=== PATIENT | female | born 1985 | race Caucasian/White ===

== ENCOUNTER → 2016-11-05 | Outpatient (CLI) | payer OTHER ==
[~2016-11-05] MED LIST: MTR600X PO; OXYC-57 PO; PRENTAB26 PO
[2016-11-05 18:11] LABS: PATIENT HEIGHT 167.6 cm
[2016-11-05 18:58] LABS: HEMATOCRIT 32.9 % (37-47); MEAN CELL VOLUME 89.6 fL (80-100); MEAN CORPUSCULAR HEMOGLOBIN 30.8 pg (25-34); MEAN CORPUSCULAR HGB CONC 34.3 g/dl (32-36); MEAN PLATELET VOLUME 11.8 fL (7.4-10.4); PLATELET COUNT 178 K/uL (130-400); RED BLOOD COUNT 3.67 M/uL (4.2-5.4); WHITE BLOOD COUNT 13.46 K/uL (4.8-10.8)
[2016-11-05 19:18] LABS: CREATININE 0.56 mg/dl (0.60-1.20)
[2016-11-05 19:23] LABS: ALKALINE PHOSPHATASE 127 U/L (45-117); ALT/SGPT 18 U/L (12-78); AST/SGOT 12 U/L (15-37)
[2016-11-05 22:41] LABS: URINE TOTAL PROTEIN 29.6 mg/dl (0-11.9)
[2016-11-05 23:08] LABS: CREATININE 0.56 mg/dl (0.6-1.2); URINE TOTAL PROTEIN CALC 340.4 mg/24 hr (0-149.1)
== END | disposition home or self-care (01) ==
LOC: C.LAB 18:00
PROVIDERS: ATTEND Obstetrics & Gynecology
DX: O16.9 Unspecified maternal hypertension, unspecified trimester (principal)

== ENCOUNTER → 2016-11-07 | Outpatient (CLI) | payer OTHER | END | disposition home or self-care (01) | LOC: C.LABSPEC 11:56 | PROVIDERS: ATTEND Obstetrics & Gynecology | DX: Z34.03 Encounter for supervision of normal first pregnancy, third trimester (principal) ==

== ENCOUNTER → 2016-11-14 | Outpatient (CLI) | payer OTHER ==
[2016-11-14 17:38] LABS: HEMATOCRIT 32.9 % (37-47); MEAN CELL VOLUME 91.1 fL (80-100); MEAN PLATELET VOLUME 12.8 fL (7.4-10.4); PLATELET COUNT 168 K/uL (130-400); RED BLOOD COUNT 3.61 M/uL (4.2-5.4)
[2016-11-14 17:51] LABS: ALT/SGPT 17 U/L (12-78); AST/SGOT 14 U/L (15-37); BLOOD UREA NITROGEN 10 mg/dl (7-18); BUN/CREATININE RATIO 15.6 (10-20); CARBON DIOXIDE 25 mmol/L (21-32); CHLORIDE 104 mmol/L (98-107); CREATININE 0.64 mg/dl (0.60-1.20); GLUCOSE 77 mg/dl (70-99); POTASSIUM 4.3 mmol/L (3.5-5.1); SODIUM 139 mmol/L (136-145)
[2016-11-14 17:54] LABS: ALB/GLOB RATIO 0.7 (0.9-2); ALKALINE PHOSPHATASE 134 U/L (45-117)
== END | disposition home or self-care (01) ==
LOC: C.LAB1850 16:42
PROVIDERS: ATTEND Obstetrics & Gynecology
DX: O14.03 Mild to moderate pre-eclampsia, third trimester (principal)

== ENCOUNTER → 2016-11-20 | Outpatient (CLI) | payer OTHER ==
[2016-11-20 14:29] LABS: BASO % 0.2 %; BASO ABS # 0.02 K/uL (0-0.2); COMPLETE YES; EOS % 0.4 %; HEMATOCRIT 31.5 % (37-47); IG% 0.5 %; LYMPH % 19.6 %; LYMPH ABS # 2.22 K/uL (1.2-3.4); MEAN CELL VOLUME 90.8 fL (80-100); MEAN CORPUSCULAR HEMOGLOBIN 30.5 pg (25-34); MEAN CORPUSCULAR HGB CONC 33.7 g/dl (32-36); MONO % 4.7 %; NEUT % 74.6 %; PLATELET COUNT 156 K/uL (130-400); RED BLOOD COUNT 3.47 M/uL (4.2-5.4); WHITE BLOOD COUNT 11.35 K/uL (4.8-10.8)
[2016-11-20 14:39] LABS: ALT/SGPT 15 U/L (12-78); AST/SGOT 10 U/L (15-37); BLOOD UREA NITROGEN 9 mg/dl (7-18); CALCIUM 8.6 mg/dl (8.5-10.1); CARBON DIOXIDE 23 mmol/L (21-32); CHLORIDE 107 mmol/L (98-107); CREATININE 0.69 mg/dl (0.60-1.20); GLUCOSE 113 mg/dl (70-99); POTASSIUM 3.8 mmol/L (3.5-5.1); SODIUM 140 mmol/L (136-145)
[2016-11-20 14:48] LABS: ALB/GLOB RATIO 0.7 (0.9-2); ALKALINE PHOSPHATASE 127 U/L (45-117)
== END | disposition home or self-care (01) ==
LOC: C.LAB1850 13:07
PROVIDERS: ATTEND Obstetrics & Gynecology
DX: O14.03 Mild to moderate pre-eclampsia, third trimester (principal)

== ENCOUNTER 2016-11-26 17:53 | Inpatient (IN) | payer OTHER ==
[~2016-11-26] VITALS: Ht 165.1 cm; Wt 77.1 kg
[2016-11-26] MEDS ORDERED: PRENTAB26 PO (19:27)
[2016-11-26 19:36] VITALS: Ht 165.1 cm; Wt 77.1 kg
[2016-11-26] MEDS ORDERED: LACTATED RINGER'S 1000ML 1,000 ML IV PRN (20:21)
[2016-11-26 20:44] LABS: HEMATOCRIT 30.8 % (37-47); MEAN CELL VOLUME 90.6 fL (80-100); MEAN CORPUSCULAR HEMOGLOBIN 30.9 pg (25-34); MEAN CORPUSCULAR HGB CONC 34.1 g/dl (32-36); PLATELET COUNT 146 K/uL (130-400); WHITE BLOOD COUNT 12.44 K/uL (4.8-10.8)
[2016-11-26] MEDS ORDERED: IV FLUIDS COMPLETED PRN (20:45)
[2016-11-26] MEDS ORDERED: LACTATED RINGER'S 1000ML 500 ML IV PRN (21:22)
[2016-11-26] MEDS ORDERED: OXYTOCIN 30 UNITS/500ML NSS IV PRN (21:30)
[2016-11-26] MEDS: LACTATED RINGER'S 1000ML 1,000 ML IV SCH (22:51)
[2016-11-27] MEDS ORDERED: BUPIVACAINE 0.25% 30 ML VIAL ONE (02:31)
[2016-11-27] MEDS ORDERED: EpHEDrine SULFATE INJ 50 MG/ML AMP ONE (02:31)
[2016-11-27] MEDS ORDERED: FENTANYL 2MCG/ML ROPIV 1.25MG/ML 100ML BAG EPI ONE (02:32)
[2016-11-27] MEDS ORDERED: FENTANYL CITRATE INJ 50 MCG/1 ML 2 ML VIAL ONE (02:32)
[2016-11-27] MEDS: LACTATED RINGER'S 1000ML 1,000 ML IV SCH ×3 (03:39→13:47)
[2016-11-27] MEDS ORDERED: NALOXONE HCL INJ 1 MG in SODIUM CHLORIDE 0.9% 1000ML 1,000 ML IV PRN (03:44)
[2016-11-27] MEDS ORDERED: LACTATED RINGER'S 1000ML 500 ML IV PRN (03:44)
[2016-11-27] MEDS ORDERED: NALOXONE HCL INJ 0.4 MG/1 ML VIAL/CARP IV PRN (03:45)
[2016-11-27] MEDS ORDERED: DiphenhydrAMINE HCL 50 MG/ML VIAL IV PRN (03:45)
[2016-11-27] MEDS ORDERED: EpHEDrine SULFATE INJ 50 MG/ML AMP IV PRN ×2 (03:45→21:15)
[2016-11-27] MEDS ORDERED: CALCIUM CARBONATE 500 MG CHEWABLE PO PRN (04:00)
[2016-11-27] MEDS: FENTANYL 2MCG/ML ROPIV 1.25MG/ML 100ML BAG EPI PRN ×5 (07:07→18:56)
[2016-11-27] MEDS ORDERED: LACTATED RINGER'S 1000ML 1,000 ML IV ONE (19:29)
[2016-11-27] MEDS ORDERED: CITRIC ACID/SODIUM CITRATE 15 ML UDC PO ONE (19:30)
--- NOTE | 2016-11-27 19:43 | History & Physical Bridge Note ---
H&P Re-Evaluation Bridge Note: I have examined the patient, reviewed the History & Physical and in the interval since the performance of the History & Physical I have noted the following changes of clinical significance: No changes noted
[2016-11-27] MEDS ORDERED: CEFAZOLIN IV 2,000 MG in DEXTROSE 5% 50ML 50 ML IV ONE (19:45)
[2016-11-27] MEDS ORDERED: LIDOCAINE/EPINEPHRINE 2% 1:200,000 20 ML SDV ONE (19:53)
[2016-11-27] MEDS ORDERED: OXYTOCIN INJ 10 UNITS/ML VIAL ONE (19:53)
[2016-11-27] MEDS ORDERED: MoRPHine SULFATE PF 1 MG/ML 10 ML AMP/VIAL ONE (20:17)
--- NOTE | 2016-11-27 21:05 | Anesthesia Procedure Note ---
Anesthesia Epidural Removal Nt Date & Time Nov 27, 2016 at 21:05 Vital Signs Pain Intensity: 0.0 Notes Mental Status: alert / awake / arousable, participated in evaluation Nausea / Vomiting: adequately controlled Pain: adequately controlled Airway Patency, RR, SpO2: stable & adequate BP & HR: stable & adequate Hydration State: stable & adequate Neuraxial Anesthesia: was administered Anesthetic Complications: no major complications apparent, pt satisfied with anesthetic care Epidural: removed without complications, with tip intact
[2016-11-27] MEDS ORDERED: OXYTOCIN INJ 30 UNITS in LACTATED RINGER'S 1000ML 1,000 ML IV SCH (21:06)
[2016-11-27] MEDS ORDERED: LACTATED RINGER'S 1000ML 1,000 ML IV SCH (21:06)
--- NOTE | 2016-11-27 21:06 | [facility] Post Operative Brief Note ---
Immediate Operative Summary Operative Date Nov 27, 2016. Pre-Operative Diagnosis Primary Caesarean Section for failure to descend and suspected cephalopelvic disproportion Post-Operative Diagnosis Primary Caesarean Section for failure to descend and suspected cephalopelvic disproportion Procedure(s) Performed Primary Low Transverse Caesarean Section for delivery of a live female child at [address] Khoury Wedger And Gluer Surgeon(s) Laura Currie Estimated Blood Loss 500cc Findings Viable female , Apgars 8/9. Weight pending. Normal appearing uterus, tubes, ovaries. Specimens Placenta (Hold) Arterial gases Venous gases Drains pandya to gravity. Anesthesia re-dose epidural Complication(s) None Disposition L&D
[2016-11-27] MEDS ORDERED: MEPERIDINE HCL 25 MG/ML CARP IV PRN (21:15)
[2016-11-27] MEDS ORDERED: BENZOCAINE 20% AER SPR 82.5 GM CAN EXT PRN (21:15)
[2016-11-27] MEDS ORDERED: ONDANSETRON INJ 2 MG/ML 2 ML VIAL IV PRN (21:15)
[2016-11-27] MEDS ORDERED: MAGNESIUM HYDROXIDE SUSP 30 ML UDC PO PRN (21:15)
[2016-11-27] MEDS ORDERED: DC INTRASPINAL MORPHINE PRN (21:15)
[2016-11-27] MEDS ORDERED: ATROPINE SULFATE 0.1 MG/ML 5ML SYR IV PRN (21:15)
[2016-11-27] MEDS ORDERED: CONTINUE MEDICATION ONE (21:15)
[2016-11-27] MEDS ORDERED: LANOLIN OINT EXT PRN ×2 (21:15)
[2016-11-27] MEDS ORDERED: METOCLOPRAMIDE HCL INJ 5 MG/ML 2 ML VIAL IV PRN (21:15)
[2016-11-27] MEDS ORDERED: NO NARCOTICS OR SEDATIVES SCH (21:15)
[2016-11-27] MEDS ORDERED: FENTANYL CITRATE INJ 50 MCG/1 ML 2 ML VIAL IV PRN (21:15)
[2016-11-27] MEDS ORDERED: MoRPHine SULFATE PF 1 MG/ML 10 ML AMP/VIAL EPI PRN (21:15)
[2016-11-27] MEDS ORDERED: PROMETHAZINE HCL INJ 25 MG in SODIUM CHLORIDE 0.9% 50ML 50 ML IV PRN (21:15)
[2016-11-27] MEDS ORDERED: KETOROLAC TROMETHAMINE 30 MG/ML VIAL IV. PRN ×2 (21:15)
[2016-11-27] MEDS ORDERED: HYDROCORTISONE ACETATE 25 MG SUPP PR PRN (21:15)
[2016-11-27] MEDS ORDERED: SUPERCREAM 0.870 % 15GM JAR EXT PRN (21:15)
[2016-11-27] MEDS ORDERED: MEPERIDINE HCL 25 MG/ML CARP ONE (21:18)
[2016-11-27 23:15] VITALS: BP 148/90; TEMP 38; O2SAT 94
[2016-11-28] VITALS (16 sets, daily range): BP systolic 136–176; BP diastolic 83–97; PULSE 86–98; TEMP 36.8–37.4; O2SAT 94–98
[2016-11-28 00:56] LABS: HEMATOCRIT 30.3 % (37-47); MEAN CELL VOLUME 90.4 fL (80-100); MEAN CORPUSCULAR HEMOGLOBIN 30.7 pg (25-34); MEAN PLATELET VOLUME 13.2 fL (7.4-10.4); PLATELET COUNT 156 K/uL (130-400); RED BLOOD COUNT 3.35 M/uL (4.2-5.4); WHITE BLOOD COUNT 22.12 K/uL (4.8-10.8)
[2016-11-28 01:21] LABS: ALB/GLOB RATIO 0.6 (0.9-2); BUN/CREATININE RATIO 10.9 (10-20); CALCIUM 7.8 mg/dl (8.5-10.1); CREATININE 1.5 mg/dl (0.60-1.20); POTASSIUM 4.1 mmol/L (3.5-5.1)
[2016-11-28] MEDS ORDERED: MAGNESIUM SULFATE / WTR 1,000 ML IV ONE (02:03)
--- NOTE | 2016-11-28 02:13 | Progress Note ---
Progress Note Patient with urine output since section 100cc over 3 hours, barely adequate output. She has had low output all day. Preeclampsia labs showed creatinine 1.5, increased from 0.7. Platelets, liver enzymes wnl. Due to patient's diagnosis of preeclampsia and now worsening renal function, concern for worsening preeclampsia. Will start magnesium bolus 4g. Due to elevated creatinine, will not give maintenance infusion. Will draw magnesium level in 4 hours and re-bolus at that time if appropriate. Discussed with patient, she is agreeable to plan. Repeat labs at 0600.
[2016-11-28] MEDS ORDERED: MAGNESIUM SULFATE 4GM / WTR 100ML IV STA (02:18)
--- NOTE | 2016-11-28 04:44 | OPERATIVE REPORT ---
DATE OF OPERATION: 11/27/2016 PREOPERATIVE DIAGNOSES: 1. Term intrauterine . 2. Preclampsia without severe features. 3. Failure to descend. 4. Cephalopelvic disproportion. POSTOPERATIVE DIAGNOSIS: Same. PROCEDURE: Primary low transverse section. SURGEON: Dr. Khoury. CHALKER SOLES: Laura Currie. ESTIMATED BLOOD LOSS: 500 mL FINDINGS: Viable female , Apgars 8 and 9, weight pending. Normal appearing uterus, tubes and ovaries. SPECIMENS: Placenta, arterial and venous gases and cord blood. DRAINS: Perez to gravity. ANESTHESIA: Re-dose of epidural. COMPLICATIONS: None. DISPOSITION: Labor and delivery, stable and good. INDICATIONS FOR PROCEDURE: The patient is a 31-year-old G1, P0, at 37 weeks 0 days, who presented for induction of labor, secondary to preclampsia. She underwent induction, starting with a Perez balloon followed by a Pitocin. She received an epidural. She progressed to complete and pushed for greater than three hours with no movement of head beyond a +3 station. While patient was pushing, significant molding of the head was noted. I discussed options with the patient and given the significant molding and maternal exhaustion, she elected to proceed with section. Informed consent was obtained. All risks, benefits, alternatives were reviewed with the patient and she agreed to proceed with surgery. DESCRIPTION OF PROCEDURE: The patient was taken to the operating room where she was prepared and draped in the usual sterile fashion in the supine position with a leftward tilt. A re-dosing of epidural anesthesia was performed. She was given 2 grams of Ancef prior to the procedure. A timeout was called and procedure, the patient, medications and allergies were confirmed. The Pfannenstiel skin incision was made with the scalpel and carried down to the underlying layer of fascia. The incision was dissected with blunt dissection. The fascia was nicked at midline and this incision was extended bilaterally with both blunt and sharp dissection. The superior aspect of the fascial incision was elevated off the underlying rectus abdominis muscles with Jam clamps x2 and the underlying muscles were dissected sharply and bluntly in a similar fashion, the inferior aspect of the incision was dissected off the underlying rectus abdominis muscles. Muscles were at midline bluntly and the peritoneum was entered bluntly, digitally. The bladder blade was placed. A bladder flap was created using Metzenbaum scissors. The bladder was dissected gently off the lower uterine segment. The bladder blade was replaced. A scalpel was used to perform the low transverse hysterotomy incision. This incision was extended cephalad caudad manually. The was delivered from a cephalic presentation. The head delivered followed by the anterior and the posterior shoulder followed by the body. The cord was doubly clamped and cut. The was handed off to the awaiting pediatrics team. A spontaneous cry was heard. A cord segment for cord gases was cut. Cord blood was obtained. The placenta was delivered spontaneously intact with a 3-vessel cord. The uterus was exteriorized. The uterus was cleared of all clots and debris. The hysterotomy incision was reapproximated using 0 Vicryl in a running locked stitch. A second layer of the same suture was used to imbricate to the hysterotomy incision. The pelvis was irrigated. The uterus was returned to the abdomen. The gutters were cleared of all clots and debris. The hysterotomy incision was re-inspected and noted to be hemostatic. The fascia was reapproximated with 0 Vicryl in a running stitch. The subcutaneous tissue was reapproximated using 2-0 plain gut in a running stitch. The skin was reapproximated using 4-0 Vicryl in a running subcuticular fashion. The patient tolerated the procedure well. She and the baby were in stable and good condition at the conclusion of the case. I attest to the content of the Intraoperative Record and any orders documented therein. Any exceptions are noted below. JORDANA
[2016-11-28 06:20] LABS: BASO ABS # 0.01 K/uL (0-0.2); COMPLETE YES; HEMATOCRIT 28.5 % (37-47); IG% 0.4 %; LYMPH % 9.6 %; LYMPH ABS # 2.05 K/uL (1.2-3.4); MEAN CELL VOLUME 89.6 fL (80-100); MEAN CORPUSCULAR HEMOGLOBIN 30.8 pg (25-34); MEAN CORPUSCULAR HGB CONC 34.4 g/dl (32-36); MEAN PLATELET VOLUME 12.6 fL (7.4-10.4); MONO % 5.8 %; NEUT % 84.2 %; PLATELET COUNT 131 K/uL (130-400); RED BLOOD COUNT 3.18 M/uL (4.2-5.4)
[2016-11-28] MEDS: NALBUPHINE HCL INJ 10 MG/ML AMP IV PRN ×2 (06:20→06:30)
[2016-11-28 07:01] LABS: ALB/GLOB RATIO 0.7 (0.9-2); BUN/CREATININE RATIO 15.8 (10-20); CALCIUM 7.6 mg/dl (8.5-10.1); CREATININE 0.95 mg/dl (0.60-1.20); MAGNESIUM 2.5 mg/dl (1.8-2.4)
[2016-11-28] MEDS: DOCUSATE SODIUM 100 MG CAP PO SCH ×2 (08:00→19:35)
[2016-11-28] MEDS ORDERED: MAGNESIUM SULFATE 4GM / WTR 4 GM BAG IV ONE (08:15)
--- NOTE | 2016-11-28 08:28 | Progress Note ---
Subjective Nov 28, 2016. Subjective conversation w/ patient Ambulation: limited ambulation Voiding: pandya catheter in place Passing Gas: No Diet Tolerance: Clear Liquids Lochia: Small Feeding Type: Breast Feeding Pain: Controlled Review of Systems Constitutional: No problem reported Respiratory: No problem reported Cardiac: No problem reported Breast: No problem reported Abdomen: No problem reported Female : No problem reported Objective Vital Signs Date Time Temp Pulse Resp B/P Pulse Ox O2 Delivery O2 Flow Rate FiO2 11/28/16 02:00 36.8 98 18 176/97 97 Room Air 11/28/16 01:00 37.3 87 20 150/83 95 11/28/16 01:00 20 95 11/28/16 00:00 18 96 11/28/16 00:00 36.8 86 18 145/92 96 Room Air 11/28/16 00:00 36.8 86 18 145/92 96 Room Air 11/27/16 23:15 38.0 18 148/90 94 Room Air 11/27/16 23:15 18 94 11/27/16 23:15 94 Room Air 11/27/16 23:15 38.0 18 148/90 94 Room Air Physical Exam General Appearance: WELL-APPEARING, NO APPARENT DISTRESS Respiratory/Chest: normal breath sounds, no respiratory distress Cardiovascular: regular rate, rhythm Abdomen: non tender, soft Fundus: Firm Incision Description: Clean, Dry & Intact Extremities: + swelling Laboratory Results Last 24 Hours Test 11/28/16 00:44 11/28/16 06:00 White Blood Count 22.12 K/uL 21.30 K/uL Red Blood Count 3.35 M/uL 3.18 M/uL Hemoglobin 10.3 g/dL 9.8 g/dL Hematocrit 30.3 % 28.5 % Mean Corpuscular Volume 90.4 fL 89.6 fL Mean Corpuscular Hemoglobin 30.7 pg 30.8 pg Mean Corpuscular Hemoglobin Concent 34.0 g/dl 34.4 g/dl RDW Standard Deviation 43.0 fL 41.8 fL RDW Coefficient of Variation 13.1 % 12.9 % Platelet Count 156 K/uL 131 K/uL Mean Platelet Volume 13.2 fL 12.6 fL Sodium Level 139 mmol/L 136 mmol/L Potassium Level 4.1 mmol/L 4.0 mmol/L Chloride Level 104 mmol/L 103 mmol/L Carbon Dioxide Level 19 mmol/L 22 mmol/L Anion Gap 16.0 mmol/L 11.0 mmol/L Blood Urea Nitrogen 16 mg/dl 15 mg/dl Creatinine 1.50 mg/dl 0.95 mg/dl Est Creatinine Clear Calc Drug Dose 56.3 ml/min 88.9 ml/min Estimated GFR () 53.6 93.2 Estimated GFR (Non- 46.3 80.4 BUN/Creatinine Ratio 10.9 15.8 Random Glucose 139 mg/dl 85 mg/dl Uric Acid 5.0 mg/dl Calcium Level 7.8 mg/dl 7.6 mg/dl Total Bilirubin 0.6 mg/dl 0.7 mg/dl Aspartate Amino Transf (AST/SGOT) 28 U/L 29 U/L Alanine Aminotransferase (ALT/SGPT) 17 U/L 16 U/L Alkaline Phosphatase 116 U/L 99 U/L Total Protein 5.1 gm/dl 4.5 gm/dl Albumin 2.0 gm/dl 1.8 gm/dl Globulin 3.1 gm/dl 2.7 gm/dl Albumin/Globulin Ratio 0.6 0.7 Neutrophils (%) (Auto) 84.2 % Lymphocytes (%) (Auto) 9.6 % Monocytes (%) (Auto) 5.8 % Eosinophils (%) (Auto) 0.0 % Basophils (%) (Auto) 0.0 % Neutrophils # (Auto) 17.92 K/uL Lymphocytes # (Auto) 2.05 K/uL Monocytes # (Auto) 1.24 K/uL Eosinophils # (Auto) 0.00 K/uL Basophils # (Auto) 0.01 K/uL Immature Granulocyte % (Auto) 0.4 % Immature Granulocyte # (Auto) 0.08 K/uL Magnesium Level 2.5 mg/dl Assessment and Plan Post-Op Day#: 1 Continue Routine Care: POD#1 s/p for failure to descend after IOL for preeclampsia. Overnight, patient had minimally adequate urine output (30ml/hr, dark) and Creatinine increased to 1.5. Therefore, preeclampsia with severe features diagnosis was made and magnesium bolus given. No infusion due to elevated Cr and concern for mag toxicity if kidneys unable to metabolize the magnesium. Mg level this AM 2.5 and creatinine 0.95 - an additional 4g bolus of mag given this AM to continue treating preeclampsia. Will consider 24h of treatment with magnesium. Since Cr is improving, if she continues to tolerate mg with this second bolus with no s/s mag toxicity, consider initiating mag infusion. Patient is feeling well, no s/s mag toxicity. Denies headache, vision change, RUQ pain. LE edema continues. Creatinine has improved, platelets ok at 130's. Additional preeclampsia labs wnl.
[2016-11-28] MEDS: SIMETHICONE 80 MG CHEW PO SCH ×4 (09:00→19:33)
[2016-11-28] MEDS ORDERED: OXYCODONE/ACETAMINOPHEN 5-325 TAB PO PRN (14:30)
[2016-11-28] MEDS ORDERED: DiphenhydrAMINE HCL 50 MG/ML VIAL IV PRN (14:30)
[2016-11-28] MEDS ORDERED: KETOROLAC TROMETHAMINE 30 MG/ML VIAL IV. PRN (14:30)
[2016-11-28] MEDS ORDERED: ONDANSETRON INJ 2 MG/ML 2 ML VIAL IV PRN (14:30)
[2016-11-28] MEDS ORDERED: ZOLPIDEM TARTRATE 5 MG TAB PO PRN (14:30)
--- NOTE | 2016-11-28 16:08 | Progress Note ---
Subjective Nov 28, 2016. Subjective conversation w/ patient, physical exam Ambulation: limited ambulation Voiding: pandya catheter in place Diet Tolerance: Clear Liquids Objective Vital Signs Date Time Temp Pulse Resp B/P Pulse Ox O2 Delivery O2 Flow Rate FiO2 11/28/16 14:30 20 98 11/28/16 13:30 18 96 11/28/16 12:30 18 96 11/28/16 11:30 18 98 11/28/16 10:30 18 98 11/28/16 09:30 20 96 11/28/16 08:30 20 96 11/28/16 07:30 20 96 11/28/16 02:00 36.8 98 18 176/97 97 Room Air 11/28/16 01:00 37.3 87 20 150/83 95 11/28/16 01:00 20 95 11/28/16 00:00 18 96 11/28/16 00:00 36.8 86 18 145/92 96 Room Air 11/28/16 00:00 36.8 86 18 145/92 96 Room Air 11/27/16 23:15 38.0 18 148/90 94 Room Air 11/27/16 23:15 18 94 11/27/16 23:15 94 Room Air 11/27/16 23:15 38.0 18 148/90 94 Room Air Physical Exam General Appearance: WELL-APPEARING, NO APPARENT DISTRESS Incision Description: Clean, Dry & Intact Extremities: no calf tenderness Laboratory Results Last 24 Hours Test 11/28/16 00:44 11/28/16 06:00 White Blood Count 22.12 K/uL 21.30 K/uL Red Blood Count 3.35 M/uL 3.18 M/uL Hemoglobin 10.3 g/dL 9.8 g/dL Hematocrit 30.3 % 28.5 % Mean Corpuscular Volume 90.4 fL 89.6 fL Mean Corpuscular Hemoglobin 30.7 pg 30.8 pg Mean Corpuscular Hemoglobin Concent 34.0 g/dl 34.4 g/dl RDW Standard Deviation 43.0 fL 41.8 fL RDW Coefficient of Variation 13.1 % 12.9 % Platelet Count 156 K/uL 131 K/uL Mean Platelet Volume 13.2 fL 12.6 fL Sodium Level 139 mmol/L 136 mmol/L Potassium Level 4.1 mmol/L 4.0 mmol/L Chloride Level 104 mmol/L 103 mmol/L Carbon Dioxide Level 19 mmol/L 22 mmol/L Anion Gap 16.0 mmol/L 11.0 mmol/L Blood Urea Nitrogen 16 mg/dl 15 mg/dl Creatinine 1.50 mg/dl 0.95 mg/dl Est Creatinine Clear Calc Drug Dose 56.3 ml/min 88.9 ml/min Estimated GFR () 53.6 93.2 Estimated GFR (Non- 46.3 80.4 BUN/Creatinine Ratio 10.9 15.8 Random Glucose 139 mg/dl 85 mg/dl Uric Acid 5.0 mg/dl Calcium Level 7.8 mg/dl 7.6 mg/dl Total Bilirubin 0.6 mg/dl 0.7 mg/dl Aspartate Amino Transf (AST/SGOT) 28 U/L 29 U/L Alanine Aminotransferase (ALT/SGPT) 17 U/L 16 U/L Alkaline Phosphatase 116 U/L 99 U/L Total Protein 5.1 gm/dl 4.5 gm/dl Albumin 2.0 gm/dl 1.8 gm/dl Globulin 3.1 gm/dl 2.7 gm/dl Albumin/Globulin Ratio 0.6 0.7 Neutrophils (%) (Auto) 84.2 % Lymphocytes (%) (Auto) 9.6 % Monocytes (%) (Auto) 5.8 % Eosinophils (%) (Auto) 0.0 % Basophils (%) (Auto) 0.0 % Neutrophils # (Auto) 17.92 K/uL Lymphocytes # (Auto) 2.05 K/uL Monocytes # (Auto) 1.24 K/uL Eosinophils # (Auto) 0.00 K/uL Basophils # (Auto) 0.01 K/uL Immature Granulocyte % (Auto) 0.4 % Immature Granulocyte # (Auto) 0.08 K/uL Magnesium Level 2.5 mg/dl Assessment and Plan Post-Op Day#: 1 Continue Routine Care: - BP's are stable - I/O 1100/2000, diuresing well - pt waking up, pain well controlled - will transfer to and allow to eat - recheck labs in AM
[2016-11-28] MEDS ORDERED: BISACODYL 5 MG TABEC PO ONE (22:00)
[2016-11-29] MEDS: OXYCODONE/ACETAMINOPHEN 5-325 TAB PO PRN ×3 (03:09→21:10)
[2016-11-29] MEDS: IBUPROFEN 600 MG TAB PO PRN ×4 (03:09→21:10)
[2016-11-29 07:04] LABS: BASO % 0.1 %; BASO ABS # 0.01 K/uL (0-0.2); COMPLETE YES; EOS % 0.2 %; HEMATOCRIT 26.3 % (37-47); IG% 0.8 %; LYMPH ABS # 2.66 K/uL (1.2-3.4); MEAN CELL VOLUME 90.1 fL (80-100); MEAN CORPUSCULAR HEMOGLOBIN 30.8 pg (25-34); MEAN CORPUSCULAR HGB CONC 34.2 g/dl (32-36); MEAN PLATELET VOLUME 12.7 fL (7.4-10.4); MONO % 5.3 %; NEUT % 77.6 %; PLATELET COUNT 138 K/uL (130-400); RED BLOOD COUNT 2.92 M/uL (4.2-5.4); WHITE BLOOD COUNT 16.65 K/uL (4.8-10.8)
--- NOTE | 2016-11-29 07:20 | Progress Note ---
Subjective Nov 29, 2016. Subjective conversation w/ patient, physical exam Ambulation: ambulating normally Voiding: incontinence Passing Gas: Yes Diet Tolerance: Regular Diet Lochia: Small Feeding Type: Breast Feeding Pain: No pain reported this morning Review of Systems Constitutional: No chills, No fever Respiratory: No cough, No shortness of breath Cardiac: No chest pain Breast: No breast pain Abdomen: No nausea, No pain, No vomiting Female : No dysuria Objective Vital Signs Date Time Temp Pulse Resp B/P Pulse Ox O2 Delivery O2 Flow Rate FiO2 11/28/16 23:30 Room Air 11/28/16 23:30 37.4 88 18 137/86 Room Air 11/28/16 19:20 Room Air 11/28/16 19:20 37.2 98 18 136/86 Room Air 11/28/16 14:30 20 98 11/28/16 13:30 18 96 11/28/16 12:30 18 96 11/28/16 11:30 18 98 11/28/16 10:30 18 98 11/28/16 09:30 20 96 11/28/16 08:30 20 96 11/28/16 07:30 20 96 Physical Exam General Appearance: WELL-APPEARING, WD/WN, NO APPARENT DISTRESS Respiratory/Chest: lungs clear, normal breath sounds Cardiovascular: regular rate, rhythm, no gallop, no murmur Abdomen: non tender, soft Fundus: Firm, Relation to Umbilicus (A level of umbilicus) Incision Description: Clean, Dry & Intact (dressing removed) Extremities: no calf tenderness Laboratory Results Last 24 Hours Test 11/29/16 06:00 White Blood Count 16.65 K/uL Red Blood Count 2.92 M/uL Hemoglobin 9.0 g/dL Hematocrit 26.3 % Mean Corpuscular Volume 90.1 fL Mean Corpuscular Hemoglobin 30.8 pg Mean Corpuscular Hemoglobin Concent 34.2 g/dl Platelet Count 138 K/uL Mean Platelet Volume 12.7 fL Neutrophils (%) (Auto) 77.6 % Lymphocytes (%) (Auto) 16.0 % Monocytes (%) (Auto) 5.3 % Eosinophils (%) (Auto) 0.2 % Basophils (%) (Auto) 0.1 % Neutrophils # (Auto) 12.93 K/uL Lymphocytes # (Auto) 2.66 K/uL Monocytes # (Auto) 0.88 K/uL Eosinophils # (Auto) 0.04 K/uL Basophils # (Auto) 0.01 K/uL RDW Standard Deviation 42.6 fL RDW Coefficient of Variation 13.0 % Immature Granulocyte % (Auto) 0.8 % Immature Granulocyte # (Auto) 0.13 K/uL Medications Current Inpatient Medications Medications (Trade) Dose Ordered Sig/Rachel Route Start Time Stop Time Status Last Admin Dose Admin Miscellaneous (Iv Fluids Completed) 1 ea PRN PRN N/A 11/26/16 20:45 11/26/17 20:44 Oxytocin (Pitocin IV) 30 units UD PRN IV 11/26/16 21:30 12/26/16 21:29 11/26/16 23:32 30 UNITS Calcium Carbonate (Tums Chew Tab) 500 mg Q4H PRN PO 11/27/16 04:00 12/27/16 03:59 11/27/16 06:06 500 MG Morphine Sulfate TODAY PRN EPI 11/27/16 21:15 Oxytocin 30 units/ Lactated Ringer's 1,003 ml @ 125 mls/hr Q8H2M IV 11/27/16 21:06 12/27/16 21:05 11/27/16 21:29 125 MLS/HR Lactated Ringer's (Lr 1000ml) 1,000 ml @ 125 mls/hr Q8H IV 11/27/16 21:06 12/27/16 21:05 11/28/16 07:10 125 MLS/HR Ketorolac Tromethamine (Toradol Inj) 30 mg Q6H PRN IV. 11/28/16 14:30 12/03/16 14:29 Oxycodone/ Acetaminophen (Percocet 5-325mg Tab) 1 tab Q4H PRN PO 11/28/16 14:30 12/12/16 14:29 11/29/16 03:09 1 TAB Oxycodone/ Acetaminophen (Percocet 5-325mg Tab) 2 tab Q4H PRN PO 11/28/16 14:30 12/12/16 14:29 Ibuprofen 600 mg 600 mg Q4H PRN PO 11/27/16 21:15 12/27/16 21:14 11/29/16 03:09 600 MG Promethazine HCl/ Sodium Chloride (Phenergan Inj/ Nss 50ml) 51 ml @ 204 mls/hr Q4H PRN IV 11/27/16 21:15 12/27/16 21:14 Ondansetron HCl (Zofran Inj) 4 mg Q4H PRN IV 11/28/16 14:30 12/28/16 14:29 Bisacodyl (Dulcolax Supp) 10 mg PRN PRN [place] 11/29/16 21:15 12/29/16 21:14 Docusate Sodium (coLACE CAP) 100 mg BID PO 11/28/16 08:00 12/28/16 07:59 11/28/16 19:35 100 MG Magnesium Hydroxide (Milk Of Magnesia Susp) 30 ml HS PRN PO 11/27/16 21:15 12/27/16 21:14 Cocaine HCl (Supercream 0.870% Cr) BID PRN EXT 11/27/16 21:15 12/11/16 21:14 Lanolin (Lanolin Oint) PRN PRN EXT 11/27/16 21:15 12/27/16 21:14 Hydrocortisone Acetate (Anusol Hc Supp) 25 mg BID PRN [place] 11/27/16 21:15 12/27/16 21:14 Benzocaine (Dermoplast Aero Spr) 1 appln PRN PRN EXT 11/27/16 21:15 12/27/16 21:14 Zolpidem Tartrate (Ambien Tab) 5 mg HSZ PRN PO 11/28/16 14:30 12/28/16 14:29 Simethicone (Mylicon Chew Tab) 80 mg QID PO 11/28/16 08:00 12/28/16 08:59 11/28/16 19:33 80 MG Diphenhydramine HCl (Benadryl Cap) 25 mg QID PRN PO 11/28/16 14:30 12/28/16 14:29 Diphenhydramine HCl (Benadryl Inj) 25 mg QID PRN IV 11/28/16 14:30 12/28/16 14:29 Assessment and Plan Post-Op Day#: 2 Continue Routine Care: - Vital Signs reviewed and WNL (temp max 37.4) - Blood Type: A+, GBS Negative, Rubella Immune - Patient doing well clinically - Encourage Ambulation today - Tolerating PO Diet - Pain well controlled - Blood pressure are well controlled and patient making adequate urine output of 700cc with minimal fluid intake. Patient denies any abdominal pain, headaches , or changes in vision. Resident Physician Supervision Note: I interviewed and examined the patient. Discussed with Dr. Nascimento and agree with findings and plan as documented in the note. Any exceptions or clarifications are listed here: Pt with some loss of bladder control. At least 700 cc out, but some incontinence. Believe the incontinence is from 3 hour second stage, then C/S. Discussed Kegel exercises, and that improvement will be slow. Documented By: Suhas Chatman
[2016-11-29 07:37] LABS: CREATININE 0.74 mg/dl (0.60-1.20)
[2016-11-29 07:52] VITALS: BP 111/71; PULSE 70; TEMP 36.4
[2016-11-29] MEDS: DOCUSATE SODIUM 100 MG CAP PO SCH ×2 (09:01→21:10)
[2016-11-29] MEDS: SIMETHICONE 80 MG CHEW PO SCH ×4 (09:02→21:10)
[2016-11-29 15:00] VITALS: BP 137/91; PULSE 81; TEMP 36.5
[2016-11-29] MEDS ORDERED: BISACODYL 10 MG SUPP PR PRN (21:15)
[2016-11-29 23:15] VITALS: BP 138/86; PULSE 69; TEMP 36.6
[2016-11-30] MEDS: OXYCODONE/ACETAMINOPHEN 5-325 TAB PO PRN ×2 (04:25→09:21)
[2016-11-30] MEDS: IBUPROFEN 600 MG TAB PO PRN ×2 (04:25→09:21)
[2016-11-30 08:03] VITALS: BP 135/87; PULSE 69; TEMP 36.7
--- NOTE | 2016-11-30 09:16 | Progress Note ---
Subjective Nov 30, 2016. Subjective conversation w/ patient, physical exam, chart review, lab review Ambulation: ambulating normally Voiding: no voiding problems, incontinence Passing Gas: Yes Diet Tolerance: Regular Diet Lochia: Moderate Feeding Type: Breast Feeding Objective Vital Signs Date Time Temp Pulse Resp B/P Pulse Ox O2 Delivery O2 Flow Rate FiO2 11/30/16 08:03 36.7 69 18 135/87 11/30/16 07:58 Room Air 11/29/16 23:17 Room Air 11/29/16 23:15 36.6 69 18 138/86 Room Air 11/29/16 15:00 Room Air 11/29/16 15:00 36.5 81 18 137/91 Room Air 81 Physical Exam General Appearance: WELL-APPEARING Respiratory/Chest: chest non-tender Cardiovascular: regular rate, rhythm Abdomen: non tender Fundus: Firm Incision Description: Clean, Dry & Intact Extremities: no calf tenderness Assessment and Plan Post-Op Day#: 3 Continue Routine Care: home
[2016-11-30] MEDS ORDERED: OXYC-57 PO (09:17)
[2016-11-30] MEDS ORDERED: MTR600X PO (09:17)
--- NOTE | 2016-11-30 09:17 | Discharge Instructions ---
Discharge Instructions Admission Reason for Admission: [facility] Discharge Discharge Diagnosis / Problem: C/S Discharge Goals Goal(s): Routine recovery after Activity Recommendations Activity Limitations: per Instructions/Follow-up section . Instructions / Follow-Up Instructions / Follow-Up ACTIVITY RECOMMENDATIONS: * Gradual return to full activity over the next 2-3 weeks. * No lifting - nothing heavier than baby over the next 2-3 weeks. * Do not engage in vigorous exercise, sexual activity or sports until cleared by your physician. * Do not drive or operate any motorized equipment until cleared by your physician. * You may shower/bathe daily. MEDICATIONS: For discomfort or pain, you may use Acetaminophen (Tylenol), Ibuprofen (Advil), or Naproxen (Aleve) following the package directions. For constipation you may use Colace following the package directions. BREAST CARE: If you are not breast feeding: * Wear a supportive bra 24 hours a day for one to two weeks. * Avoid stimulating your breasts and nipples as much as possible during the first few weeks after delivery. * When taking a shower, have the warm water hit your back, not breasts. * When your breasts feel full, apply ice packs. Usually three to four times a day helps ease the discomfort. * Take a mild pain medication (Tylenol / Motrin) when you are uncomfortable. If breast feeding: * Use breast milk to lubricate nipples. Lansinoh cream may be used for sore nipples. You do not need to remove cream prior to breast feeding. If using a different brand of cream, check the label for directions regarding removal of cream prior to nursing. * Wear a supportive bra. * If having problems with breasts or breast feeding, call a information security consultant or your health care provider. SPECIAL CARE INSTRUCTIONS: When you are discharged from the hospital, it is important for you to follow the instructions listed below: * During the first week at home, you should be able to care for yourself and your baby. In addition, the usual light household activities are encouraged. * Limit your activities to the way you feel. Do not try to clean the house or move furniture. Be sensible. * If you actively engage in sports and have done so up until the time of your delivery, you may resume these activities as soon as you feel able. This may take up to one month or even longer. Use good judgment. * Continue to take your vitamins for at least six weeks after the of your baby. * Your diet need not be limited unless you were on a special diet before your delivery. Breast-feeding mothers need around 2500 calories per day and at least 64-80 ounces of fluid per day (8 to 10 glasses). * You should eat foods from the four major food groups. Crash diets or fad diets are to be avoided. Eating lean meats, fresh fruits and vegetables, low-fat dairy products, high fiber foods and a regular exercise program, will help you get back to your pre- weight without putting your health at risk. * Constipation is sometimes a problem after delivery. Take a mild laxative as needed. If breast feeding, Milk of Magnesia is acceptable to use. You may use a suppository or Fleets enema. * A daily shower or tub bath is suggested. Wash incision daily with warm soapy water and pat dry. It doesn't need to be covered unless drainage is present. * A bloody vaginal discharge will usually continue until around four weeks . A small amount of bleeding may continue for as long as six weeks. Vaginal discharge changes from the bright red bleeding after delivery to pink then brownish and finally yellowish-pink before becoming white and disappearing. * Bleeding may increase with activity. Your first period may come in 4-8 weeks. If you are breast feeding, your period may be delayed even longer. * Terramuggus (sex) can begin whenever both you and your partner feel comfortable and do not have any form of genital infection. It is recommended that you wait at least six weeks for internal and external healing to occur. If you have questions, please talk to your health care practitioner. A condom should be used to prevent infection and . * Foreplay, gentle intercourse and lubrication is very important the first several times to prevent pain. A water-based lubricant such as K-Y jelly or Astroglide may be used. * If you have RH negative blood and your baby is RH positive, you will receive RHOGAM by injection prior to discharge. The nurse will give you a card to keep with you that has the date and place that you received RHOGAM after delivery. * During your care, you had a Rubella screen done to check for the presence of rubella antibodies in your blood. If your test was negative, you will receive a Rubella vaccine prior to discharge. This vaccine may cause a fever, soreness at the injection site and flu-like symptoms. If these symptoms persist, notify your health care practitioner. is not advised for one month after a Rubella vaccine. * Verbalizes understanding of car seat law as reviewed with patient nursing. * Car Seat hand-out given and reviewed with patient by nursing. * Shaken baby information reviewed with patient by nursing. Call you doctor if: * Heavy bleeding (saturating several pads an hour) or passing clots the size of your fist. * A fever >101 degrees F (38.3 degrees C) on two occasions four hours apart and /or chills. * Unusual pain in the pelvic or vaginal areas. * Call the doctor for any increased redness, drainage or swelling around the incision and any pain unrelieved by prescribed pain medication. * "Baby Blues" lasting longer than two weeks. If you have any questions or concerns, call your health care practitioner at . FOLLOW UP VISIT: * Please call the office at to schedule a 6 week examination. It is important you keep this appointment. It is important for you to make arrangements for either yearly or twice yearly check-ups thereafter. Current Hospital Diet Patient's current hospital diet: Regular OB Diet Discharge Diet Recommended Diet: Regular OB Diet Procedures Procedures Performed: Primary Low Transverse Caesarean Section for delivery of a live female child at 2019 Pending Studies Studies pending at discharge: no Medical Emergencies . Who to Call and When: Medical Emergencies: If at any time you feel your situation is an emergency, please call 911 immediately. . Non-Emergent Contact Non-Emergency issues call your: Primary Care Provider . . "Provider Documentation" section prepared by Francisco Whitehead. VTE Core Measure Inpt VTE Proph given/why not?: George Pedraza, SCD's
[2016-11-30] MEDS: SIMETHICONE 80 MG CHEW PO SCH (09:21)
[2016-11-30] MEDS: DOCUSATE SODIUM 100 MG CAP PO SCH (09:22)
[2016-11-30 11:30] VITALS: BP_DIAS 87; PULSE 69; TEMP 36.7
--- NOTE | 2016-12-06 03:05 | DISCHARGE SUMMARY ---
PROCEDURE: 1. Insertion of Perez balloon. 2. Primary low transverse section PREDELIVERY DIAGNOSES: 1. Term intrauterine . 2. Preeclampsia without severe features. DISCHARGE DIAGNOSES: Same plus failure to descend plus cephalopelvic disproportion. COURSE OF STAY: The patient presented for induction of labor secondary to preeclampsia without severe features. She received a Perez balloon this was followed by she received an epidural and then progressed to complete pushing for greater than 3 hours with significant molding of head. Therefore, primary low transverse section was performed. The patient recovered in stable and good condition and was discharged to home. CONDITION ON DISCHARGE: Stable and good. MEDICATIONS: Please see discharge medication list. ACTIVITY: Pelvic rest and no heavy lifting. DIET: Regular. FOLLOWUP: Followup 6 weeks in the office.
== END 2016-11-30 14:08 | disposition home or self-care (01) | DRG 766 ==
LOC: C.LD 17:53 → C.OPB 17:53 → C.LD 18:25 → C.OPB 18:25 → OBSVTOIN 20:22 → C.OBG 11-27 23:21 → C.LD 11-28 02:05 → C.OBG 11-28 19:16
PROVIDERS: ADMIT Obstetrics & Gynecology; ATTEND Obstetrics & Gynecology
PROC: 10D00Z1 Extraction of Products of Conception, Low, Open Approach (ICD-10-PCS; principal; 2016-11-27 19:39)
DX: O33.9 Maternal care for disproportion, unspecified (principal); O62.1 Secondary uterine inertia; O14.04 Mild to moderate pre-eclampsia, complicating childbirth; O75.81 Maternal exhaustion complicating labor and delivery; O99.89 Other specified diseases and conditions complicating pregnancy, childbirth and the puerperium; N39.498 Other specified urinary incontinence; Z3A.37 37 weeks gestation of pregnancy; Z37.0 Single live birth

== ENCOUNTER → 2016-11-26 | Outpatient (CLI) | payer OTHER ==
[2016-11-26 16:22] LABS: BASO % 0.2 %; BASO ABS # 0.02 K/uL (0-0.2); COMPLETE YES; EOS % 0.3 %; HEMATOCRIT 32.1 % (37-47); IG% 0.8 %; MEAN CELL VOLUME 90.4 fL (80-100); MEAN CORPUSCULAR HEMOGLOBIN 30.7 pg (25-34); MEAN PLATELET VOLUME 13.3 fL (7.4-10.4); MONO % 5.5 %; NEUT % 72.2 %; PLATELET COUNT 159 K/uL (130-400); RED BLOOD COUNT 3.55 M/uL (4.2-5.4); WHITE BLOOD COUNT 13.33 K/uL (4.8-10.8)
[2016-11-26 16:57] LABS: ALT/SGPT 17 U/L (12-78); AST/SGOT 13 U/L (15-37); BLOOD UREA NITROGEN 11 mg/dl (7-18); BUN/CREATININE RATIO 15.1 (10-20); CALCIUM 9.1 mg/dl (8.5-10.1); CARBON DIOXIDE 23 mmol/L (21-32); CHLORIDE 105 mmol/L (98-107); CREATININE 0.71 mg/dl (0.60-1.20); GLUCOSE 88 mg/dl (70-99); POTASSIUM 3.8 mmol/L (3.5-5.1); SODIUM 140 mmol/L (136-145)
[2016-11-26 16:59] LABS: ALB/GLOB RATIO 0.7 (0.9-2); ALKALINE PHOSPHATASE 141 U/L (45-117)
== END | disposition home or self-care (01) ==
LOC: C.LAB1850 15:27
PROVIDERS: ATTEND Obstetrics & Gynecology
DX: O14.03 Mild to moderate pre-eclampsia, third trimester (principal)

== ENCOUNTER → 2017-03-12 | Outpatient (CLI) | payer OTHER ==
[2017-03-12 13:11] LABS: BASO % 0.4 %; BASO ABS # 0.03 K/uL (0-0.2); COMPLETE YES; EOS % 1.9 %; HEMATOCRIT 42.3 % (37-47); IG% 0.1 %; LYMPH % 38.3 %; LYMPH ABS # 2.82 K/uL (1.2-3.4); MEAN CELL VOLUME 89.4 fL (80-100); MEAN CORPUSCULAR HEMOGLOBIN 28.3 pg (25-34); MEAN CORPUSCULAR HGB CONC 31.7 g/dl (32-36); MEAN PLATELET VOLUME 11.1 fL (7.4-10.4); MONO % 8.6 %; NEUT % 50.7 %; PLATELET COUNT 296 K/uL (130-400); RED BLOOD COUNT 4.73 M/uL (4.2-5.4); WHITE BLOOD COUNT 7.36 K/uL (4.8-10.8)
[2017-03-12 13:34] LABS: ALB/GLOB RATIO 1.2 (0.9-2); ALKALINE PHOSPHATASE 73 U/L (45-117); ALT/SGPT 33 U/L (12-78); AST/SGOT 13 U/L (15-37); BLOOD UREA NITROGEN 14 mg/dl (7-18); BUN/CREATININE RATIO 18.8 (10-20); CALCIUM 9.1 mg/dl (8.5-10.1); CARBON DIOXIDE 31 mmol/L (21-32); CHLORIDE 106 mmol/L (98-107); CREATININE 0.75 mg/dl (0.60-1.20); GLUCOSE 81 mg/dl (70-99); POTASSIUM 4.4 mmol/L (3.5-5.1); SODIUM 140 mmol/L (136-145)
[2017-03-12 13:44] LABS: THYROID STIMULATING HORMONE 0.639 uIu/ml (0.300-4.500)
== END | disposition home or self-care (01) ==
LOC: C.LABMFLN 11:53
PROVIDERS: ATTEND Physician Assistant
DX: Z39.2 Encounter for routine postpartum follow-up (principal); L65.9 Nonscarring hair loss, unspecified; Z78.9 Other specified health status

== ENCOUNTER → 2018-02-25 | Outpatient (CLI) | payer OTHER | END | disposition home or self-care (01) | LOC: C.PAPS 15:31 | PROVIDERS: ATTEND Family Medicine | DX: Z12.4 Encounter for screening for malignant neoplasm of cervix (principal) ==